=== PATIENT | female | born 1980 | race Hispanic/Latino ===

== ENCOUNTER → 2024-07-08 | Day surgery (SDC) | payer OTHER ==
[~2024-07-08] MED LIST: AMOXICILLIN250 MG PO; GLUCAGON FOR INJ 1 MG VIAL ONE; LIDOCAINE HCL 2% LOCAL INJ 5 ML SDV VIAL INJ ONE; PROPOFOL IV EMULSION 50 ML IV ONE
[2024-07-08] MEDS: LACTATED RINGER'S 1,000 ML ONE (13:32)
[2024-07-08 15:39] VITALS: TEMP 98.3
[2024-07-08 16:05] VITALS: BP 122/68; PULSE 77; RESP 16; O2SAT 98
[2024-07-08 16:55] LABS: CDIFF AG QUIK CHEK NEGATIVE (NEGATIVE); CDIFF TOX QUIK CHEK NEGATIVE (NEGATIVE); WBC,FECAL (FECAL LACTOFERRIN) NEGATIVE (NEGATIVE)
[2024-07-09 07:36] LABS: C-REACTIVE PROTEIN 5 mg/L (0-10)
[2024-07-11 08:12] LABS: ENDOMYSIAL ANTIBODIES, IGA Negative (Negative)
[2024-07-11 08:58] LABS: IMMUNOGLOBULIN A 269 mg/dL (87-352); TISSUE TRANSGLUTAMINASE IGA AB <2 U/mL (0-3)
== END | disposition home or self-care (01) ==
LOC: OR 13:01
PROVIDERS: ATTEND Internal Medicine Gastroenterology
DX: K52.9 Noninfective gastroenteritis and colitis, unspecified (principal); K63.5 Polyp of colon; K62.89 Other specified diseases of anus and rectum; K64.1 Second degree hemorrhoids; Z71.3 Dietary counseling and surveillance; Z71.9 Counseling, unspecified; Z68.28 Body mass index [BMI] 28.0-28.9, adult
CPT/HCPCS: 45380; 45385; 81025; 82784; 83516; 83630; 83993; 86140; 86256; 87045; 87177; 87324; 87328; 87449; J1610; J2003; J2704; J7121